=== PATIENT | female | born 1965 ===

== ENCOUNTER 2019-06-28 17:29 | Emergency (ER) | payer MEDICAID ==
[~2019-06-28] VITALS: Ht 157.5 cm; Wt 59.1 kg
[2019-06-28] MEDS ORDERED: sulfamethoxazole/trimethoprim DS (800/160mg) tablet PO ONE (18:20)
[2019-06-28] MEDS ORDERED: SULF1TAB49 PO (18:34)
[2019-06-28 18:38] VITALS: BP 121/82
== END 2019-06-28 18:53 | disposition home or self-care (01) ==
LOC: ER 17:30
DX: L08.89 Other specified local infections of the skin and subcutaneous tissue (principal); F10.99 Alcohol use, unspecified with unspecified alcohol-induced disorder; F12.90 Cannabis use, unspecified, uncomplicated; Y90.9 Presence of alcohol in blood, level not specified
CPT/HCPCS: 99283